=== PATIENT | female | born 1980 | race Caucasian/White ===

== ENCOUNTER 2018-07-26 10:55 | Day surgery (SDC) | payer OTHER ==
[~2018-07-26] VITALS: Ht 162.6 cm; Wt 105.2 kg
[~2018-07-26 10:55] MED LIST: ADVAIR 250-501 EACH INH; LORATADINE10 MG PO; PREDNISONE20 MG PO; PRENATAL 19 TA1 EAC1 PO; PROAIR HFA8.5 GM IH; PROMETRIUM100 MG; PROVENTIL HFA6.7 GM INH; VITAMIN D2000 UNIT PO
[2018-07-26] MEDS ORDERED: NORCO 7.5-3251 EACH PO (12:23)
--- NOTE | 2018-07-26 13:26 | NUR ---
07/26/18 1326 Elaine Perez SN 1301- PT IN PACU. LAYING IN SEMI FOWLERS POSOTION WITH EYES CLOSED. OPA IN PLACE. RESPS EVEN AND UNLABORED, 02 SAT HIGH 90S ON 9L VIA MASK. PT UNABLE TO REPORT PAIN NAUSEA AND DIZZINESS AT THIS TIME. LUCRECIA VICENTE AT BEDSIDE. PT REQUIRING JAW LIFT BY GERRI CARLOS TO ASSIST IN MAINTAINING ADEQUEATE VENTILATION. 1305- PT OPENED EYES TO VERBAL STIMLI BY GERRI CARLOS. FALLS BACK ASLEEP INSTANTLY. RESPS EVEN AND UNLABORED, 02 SAT HIGH 90S ON 8L VIA MASK. 1306- 02 TITRQATED DOWN TO 6L VIA MASK. TOLERATING WELL. RESPS EVEN AND UNLABORED, 02 SAT HIGH 90S. 1309- OPA REMOVED BY GERRI CARLOS. TOLERATING WELL. PT WAS ABLE TO ASISST IN REMOVAL BY GRABBING OPA AND NODDING THAT SHE WANTED IT OUT. RESPS EVEN AND UNLABORED, 02 REMOVED AT THIS TIME. 02 SAT REMAINS HIGH 90S ON RA. 1311- ICE APPLIED TO AFFECTED EXTREMITY AND PT GIVEN ANOTHER BLANKET DUE TO SHIVERING. TOLERATING WELL. PT RESTING WITH EYES PERIODICALYL CLOSED. ABLWE TO CONVERSATE WITH STAFF MEMBERS. RESPS REMAIN EVEN AND UNLABORED, 02 SAT HIGH 90S ON RA. PT REPORTINFG 2 OUT OF 10 PAIN THAT IS TOLERABLE FOR HER AT THIS TIME. 1321- PT REPORTING 4 OUT OF TEN PAIN THAT SHE STATES IS STILL TOLERABLE FOR HER AT THIS TIME. RESPS EVEN AND UNLABORED.
--- NOTE | 2018-07-26 14:09 | NUR ---
PT ARRIVES TO DS RM 10 FROM PACU AWAKE AND ALERT. PT RESP EVEN AND UNLABORED, SATS ABOVE 94% ON RA. PT DENIES NAUSEA AND RATES PAIN 4/10 AND TOLERABLE. PT MOM AT BEDSIDE. PT PROVIDED ICED WATER AND CRACKERS. PT STATES SHE "NEEDS TO PEE," WEIGHT BEARING ORDERS CHECKED AND PT AMBULATES TO BATHROOM WITHIN RM WITH RN ASSIST. PT DENIES PAIN OR DIZZINESS WITH AMBULATION. PT VOIDS 250 MLS LIGHT YELLOW URINE WITH NO PROBLEMS. PT BACK IN BED WITH SCD'S IN PLACE AND ICE ON LEFT KNEE. CALL LIGHT WITHIN REACH.
--- NOTE | 2018-07-26 15:38 | NUR ---
1515: DC CRITERIA MET, PT AGREEABLE TO DC HOME. DC INSTRUCTIONS GIVEN IN PRESENCE OF PT AND MOTHER, ALL QUESTIONS ADDRESSED. PT DRESSES SELF WITH HELP FROM MOTHER. PT DC VIA WC TO PERSONAL VEHICLE AT HOSPITAL ENTRANCE HOME.
--- NOTE | 2018-07-30 16:34 | OR ---
[facility] [address] [facility] [place] [address] Signed DATE OF OPERATION: 07/26/2018 SURGEON: Waldemar Swanson MD PREOPERATIVE DIAGNOSES: Medial meniscus tear, left knee. POSTOPERATIVE DIAGNOSIS: Medial meniscus tear, left knee. PROCEDURE PERFORMED: Left knee arthroscopy with partial medial meniscectomy. REAL ESTATE CLERK: None. ANESTHESIA: General. BLOOD LOSS: Minimal. TOURNIQUET TIME: Zero. BRIEF HISTORY: Shahrzad is a 38-year-old female with history of meniscus tear that I debrided about 8 months ago. She returned with recurrent symptoms. MRI showed a new meniscus tear anterior to the prior resection. Risks and benefits of operative treatment discussed with her. She elected to proceed. DESCRIPTION OF PROCEDURE: Once consent was obtained, she was taken to the operating room. After adequate anesthesia, she was placed on operating room table. All downside pressure points were well padded. The right leg was flexed, abducted, and externally rotated on a well-padded leg byrd. Left was placed in well-padded leg byrd. Portal sites were pre-injected using 0.25% Marcaine with epinephrine under an alcohol prep. The leg was then prepped and draped in a standard sterile fashion. Prior incisions were marked out and incised and the scope was introduced in the knee. Electronically Signed By: WALDEMAR SWANSON MD 07/30/18 1634 PATIENT NAME: SHAHRZAD PRIEST OPERATIVE REPORT DATE OF : 84 REPORT #: [id number] PHYSICIAN: WALDEMAR SWANSON MD PCP: NO PRIMARY CARE PHYSICIAN REPORT IS CONFIDENTIAL AND NOT TO BE RELEASED WITHOUT AUTHORIZATION [facility] [address] [place], [place] [address] Signed ARTHROSCOPIC FINDINGS: Extensive medial synovitis was noted. The lateral compartment was intact. ACL and PCL were intact. 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 There were small osteophytes in the lateral gutter. Medial compartment showed grade 4 chondromalacia to the mesial 1/3 of the tibial plateau. Grade 3 disease to the rest of the tibia and grade 2 to grade 3 disease on the femoral side. There was a new radial tear just anterior to the prior resection. Standard inferomedial portal was established. The scope was switched to the inferomedial portal to allow better working angle. The straight biter was then introduced and midportion was trimmed back to a stable rim. This was smoothed using a shaver and all debris was evacuated. The chondromalacia mesially was full-thickness and fairly extensive for her young age. All debris was evacuated. The scope was withdrawn. Portals were closed with 3-0 nylon and dressed with Adaptic, ABD, and ERVIN wrap. She tolerated the procedure well. All sponge, needle, and instrument counts were correct. Waldemar Swanson MD BA/RUYL /[id number] Copies: ~ Electronically Signed By: WALDEMAR SWANSON MD 07/30/18 1634 PATIENT NAME: ZAYDASHAHRZAD LEE OPERATIVE REPORT DATE OF : 84 REPORT #: [id number] PHYSICIAN: WALDEMAR SWANSON MD PCP: NO PRIMARY CARE PHYSICIAN REPORT IS CONFIDENTIAL AND NOT TO BE RELEASED WITHOUT AUTHORIZATION
== END 2018-07-26 15:30 | disposition home or self-care (01) ==
LOC: DS 10:55
PROVIDERS: Specialist
PROC: 0SBD4ZZ Excision of Left Knee Joint, Percutaneous Endoscopic Approach (ICD-10-PCS; principal; 2018-07-26 12:00)
DX: S83.242A Other tear of medial meniscus, current injury, left knee, initial encounter (principal); M22.42 Chondromalacia patellae, left knee; M25.762 Osteophyte, left knee; M65.862 Other synovitis and tenosynovitis, left lower leg; J45.909 Unspecified asthma, uncomplicated; E66.01 Morbid (severe) obesity due to excess calories; Z79.899 Other long term (current) drug therapy; Z68.39 Body mass index [BMI] 39.0-39.9, adult
CPT/HCPCS: 01400; J0330; J0690; J1100; J1170; J1885; J2250; J2405; J2704; J3010; J7120

== ENCOUNTER 2019-01-11 16:33 | Emergency (ER) | payer OTHER ==
[~2019-01-11] VITALS: Ht 162.6 cm; Wt 105.2 kg
[~2019-01-11 16:33] MED LIST changes: +NORCO 7.5-3251 EACH PO
[2019-01-11] MEDS ORDERED: DICYCLOMINE HCL10 MG PO (18:39)
[2019-01-11] MEDS ORDERED: PROMETHAZINE HC25 M1 PO (18:39)
== END 2019-01-11 18:49 | disposition home or self-care (01) ==
LOC: ED 16:33
DX: R10.33 Periumbilical pain (principal); R19.7 Diarrhea, unspecified; J45.909 Unspecified asthma, uncomplicated; Z79.899 Other long term (current) drug therapy
CPT/HCPCS: 80053; 81001; 83690; 83735; 84703; 85025; 96361; 96374; 96375; 99284-25; J2270; J2405; J7030

== ENCOUNTER 2019-08-23 15:45 | Emergency (ER) | payer OTHER ==
[~2019-08-23] VITALS: Ht 162.6 cm; Wt 90.7 kg
[~2019-08-23 15:45] MED LIST changes: +CITALOPRAM HBR20 MG PO; +DICYCLOMINE HCL10 MG PO; +NORCO 5-325 TA1 EACH PO; +PROMETHAZINE HC25 M1 PO; +VITAMIN B-650 MG PO
--- NOTE | 2019-08-23 20:44 | EKG ---
[facility] [address] [facility] [place], [place] [address] Signed Normal sinus rhythm Normal ECG No previous ECGs available Confirmed by MICKIE GAMING MD ([id number]) on 08/23/2019 8:44:11 PM Electronically Signed By: MICKIE GAMING MD 08/23/194 PATIENT NAME: KARIN PRIEST JONATHAN Electrocardiogram DATE OF : 84 PHYSICIAN: MICKIE GAMING MD REPORT #: [id number] REPORT IS CONFIDENTIAL AND NOT TO BE RELEASED WITHOUT AUTHORIZATION
== END 2019-08-23 19:33 | disposition home or self-care (01) ==
LOC: ED 15:45
DX: R07.9 Chest pain, unspecified (principal); J45.909 Unspecified asthma, uncomplicated; Z88.5 Allergy status to narcotic agent; Z79.899 Other long term (current) drug therapy
CPT/HCPCS: 71045; 80053; 83735; 84484; 85025; 93005; 93010; 99285-25

== ENCOUNTER 2020-03-17 01:35 | Emergency (ER) | payer OTHER ==
[~2020-03-17] VITALS: Ht 162.6 cm; Wt 103.0 kg
--- NOTE | 2020-03-17 20:40 | EKG ---
[facility] [address] [facility] [place], [place] [address] Signed Normal sinus rhythm Moderate voltage criteria for LVH, may be normal variant Borderline ECG When compared with ECG of 23-AUG-2019 16:13, No significant change was found Confirmed by VAN WYLIE DO ([id number]) on 03/17/2020 8:40:26 PM Electronically Signed By: VAN WYLIE DO 03/17/202039 PATIENT NAME: KARIN PRIEST JONATHAN Electrocardiogram DATE OF : 84 PHYSICIAN: VAN WYLIE DO REPORT #: [id number] REPORT IS CONFIDENTIAL AND NOT TO BE RELEASED WITHOUT AUTHORIZATION
== END 2020-03-17 03:41 | disposition home or self-care (01) ==
LOC: ED 01:35
DX: R07.89 Other chest pain (principal); Z20.822 Contact with and (suspected) exposure to COVID-19; J45.909 Unspecified asthma, uncomplicated; Z88.5 Allergy status to narcotic agent; Z79.899 Other long term (current) drug therapy
CPT/HCPCS: 71045; 80053; 83735; 84484; 84703; 85025; 93005; 93010; 96374; 99285-25; C9803; J2060; U0003

== ENCOUNTER 2020-09-20 05:40 | Day surgery (SDC) | payer OTHER ==
--- NOTE | 2020-09-07 16:26 | NUR ---
DOS: 7\19\21 STEPS: 2 STEPS INTO THE HOME HAS A WALK IN SHOWER PT WILL NEED TO OBTAIN THE FOLLOWING: FWW, TOILET RAISER, SHOWER CHAIR. GAVE PT THE [employer] DAVIDTE HANDOUT. PT LIVES AT HOME WITH HER AND TWO CHILDREN WHO ARE BOTH UNDER AGE 10. HER WILL GET HER TO FOLLOW-UP APPOINTMENTS AND PHYSICAL THERAPY.
[~2020-09-20] VITALS: Ht 162.6 cm; Wt 109.1 kg
[2020-09-20] MEDS ORDERED: MULTI-VITAMIN1 EACH PO (06:00)
[2020-09-20] MEDS ORDERED: OXYCODONE HCL5 MG PO (08:54)
[2020-09-20] MEDS ORDERED: XARELTO10 MG PO (08:54)
[2020-09-20] MEDS ORDERED: DICLOFENAC SODI75 MG PO (08:54)
[2020-09-20] MEDS ORDERED: SENNA LAX8.6 MG PO (08:55)
[2020-09-20] MEDS ORDERED: GABAPENTIN600 MG PO (08:55)
--- NOTE | 2020-09-20 09:00 | NUR ---
09/20/20 0900 Nadia Ocampo 0854- PT ARRIVES TO PACU EASILY AROUSABLE TO VOICE. PT REPORTS NO PAIN OR NAUSEA. PT FALLS TO SLEEP WHEN NOT BEING TALKED TO. RESP EVEN AND UNLABORED. OXYGEN SAT HIGH 90'S TO 100% ON RA.
--- NOTE | 2020-09-20 10:13 | NUR ---
0951: PT RETURNS TO UNIT VIA STRETCHER. AWAKE AND ALERT. ANSWERS QUESTIONS APPROPRIATELY. VSS, RESP EVEN AND UNLABORED. DENIES NAUSEA AND REPORTS MILD PAIN AT THIS TIME. TO EAT CRACKERS AND SIP ON WATER PRIOR TO PAIN RX ADMINISTRATION. SMALL AMOUNT OF DRAINAGE NOTED ON DRESSING. CMS WNL. CRYO CUFF, SCDS AND COMPRESSION HOSE IN PLACE. PT COMFORTABLE WITHOUT NEEDS. NOTIFIED OF PTS ARRIVAL TO UNIT. CALL LIGHT WITHIN REACH 1010: PT TANNA PO INTAKE WELL. REPORTS INCREASED PAIN /10. PAIN RX ADMINISTERED ORDERED AND SNACK PROVIDED AT REQUEST. NO FURTHER NEEDS VOICED
--- NOTE | 2020-09-20 11:00 | NUR ---
1100: PT AWAKE AND ALERT IN BED WATCHING TV. DENIES PAIN AND NAUSEA AT THIS TIME. TANNA PO INTAKE WELL. REG LUNCH TRAY ORDERED. VSS, RESP EVEN AND UNLABORED. NO CHANGE TO DRESSING, CMS WNL. CRYO CUFF, COMPRESSION SOCKS AND SCDS REMAIN IN PLACE. ICE WATER REPLENISHED. NO NEEDS VOICED. CALL LIGHT WITHIN REACH
--- NOTE | 2020-09-20 11:00 | NUR ---
director of revenue took pt vitals
--- NOTE | 2020-09-20 11:41 | NUR ---
dowel maker took pt lunch in to her. No other needs at this time. call light within reach .
--- NOTE | 2020-09-20 11:56 | NUR ---
vitals taken, pt. eating lunch no other needs at this time
--- NOTE | 2020-09-20 12:03 | OR ---
[facility] [address] [place], [place] [address] Signed DATE OF OPERATION: 09/20/2020 SURGEON: Waldemar Swanson MD PREOPERATIVE DIAGNOSIS: Severe degenerative joint disease of left knee. POSTOPERATIVE DIAGNOSIS: Severe degenerative joint disease of left knee. PROCEDURE PERFORMED: Left total knee arthroplasty with Per. PROPERTY UNDERWRITER: None. ANESTHESIA: Spinal. BLOOD LOSS: 225 mL. IMPLANTS: Davenport Triathlon size 3 femur, 2 tibia, 9 mm polyethylene and a 29 mm patella. BRIEF HISTORY: Shahrzad is a 40-year-old female with progressive worsening of osteoarthritis. Despite nonoperative obtained. The risks and benefits of operative treatment were discussed with her and she elected to proceed. DESCRIPTION OF PROCEDURE: Once consent was obtained, she was taken to the operating room. After adequate anesthesia, she was placed on the operating room table, all downside pressure points were well padded. The left leg was placed on a hip bump. No tourniquet was placed. The leg was prepped and draped in a standard sterile fashion. Standard anterior approach through a straight incision was taken through the skin and subcutaneous tissue. The mid vastus approach was undertaken. The bleeders were cauterized as we went. The MCL was elevated with a sleeve around the posteromedial corner. The infrapatellar fat pad was excised. Anterior horns of menisci were transected as was the ACL. The PCL was intact. The for the Per system were placed in the medial femoral condyle Electronically Signed By: WALDEMAR SWANSON MD 09/20/20 1203 PATIENT NAME: SHAHRZAD PRIEST OPERATIVE REPORT DATE OF : 84 REPORT #: [id number] PHYSICIAN: WALDEMAR SWANSON MD PCP: NO PRIMARY CARE PHYSICIAN REPORT IS CONFIDENTIAL AND NOT TO BE RELEASED WITHOUT AUTHORIZATION [facility] [address] [place], [place] [address] Signed and proximal tibia. The computer ray was placed intra-incisionally in the medial femoral condyle. The tibial tray was placed one handsbreadth below the tibial tuberosity percutaneously. The leg was then registered with computer as were the fine anatomic points. The varus valgus testing showed minimal ligamentous laxity. We did change the rotation by 1 degree. The robot was then brought in and the four straight cuts were taken with care taken to protect the patellar tendon and MCL. The 2 angle cuts were made and all bony surfaces removed. Any remaining osteophytes removed. Once this was accomplished, the posterior osteophytes removed off the femur and the trials were placed. The knee went from 0 to about 130 degrees, which was thigh heel impingement. The patella was cut sized and drilled for a 29 asymmetric patella. The distal femoral drill holes were made and the tibia was finished using the keel punch and drilled. The bone was excellent in condition and we elected to go a non-cemented prosthesis. The prosthesis was obtained and the tibia was impacted in position first followed by the polyethylene. The femur was impacted into position. The knee was extended and nicely loaded. The patella was clamped into position and the periarticular soft tissues were injected with 100 mL ropivacaine and Toradol mixture. The knee was pulse lavaged with 3 L total normal saline. In the midst of this, we did do a soak with Aricept and evacuated that with further irrigation. The On-Q pain pump was placed percutaneously into the adductor canal from the suprapatellar pouch. The arthrotomy was then closed using #2 Stratafix, subcutaneous tissue with #0 Stratafix, and skin with 3-0 Stratafix. The wounds were dressed with Steri-Strips and Acticoat dressings. She was awakened and taken to the recovery room in satisfactory condition. All sponge, needle, and instrument counts were correct. Waldemar Swanson MD /MODL /[id number] Copies: ~ Electronically Signed By: WALDEMAR SWANSON MD 09/20/20 1203 PATIENT NAME: SHAHRZAD PRIEST OPERATIVE REPORT DATE OF : 84 REPORT #: [id number] PHYSICIAN: WALDEMAR SWANSON MD PCP: NO PRIMARY CARE PHYSICIAN REPORT IS CONFIDENTIAL AND NOT TO BE RELEASED WITHOUT AUTHORIZATION
--- NOTE | 2020-09-20 12:10 | NUR ---
pt ate 95% of her lunch and requested more water. no other needs at this time.
--- NOTE | 2020-09-20 12:56 | NUR ---
1150: PT COMPLETES REG LUNCH TRAY. CONTS TO DENY PAIN AND NAUSEA. VSS, RESP EVEN AND UNLABORED. NO CHANGE TO DRESSING, CMS WNL. SCDS, COMPRESSION SOCKS AND CRYO CUFF REMAIN IN PLACE. NO NEEDS VOICED, CALL LIGHT WITHIN REACH
--- NOTE | 2020-09-20 13:00 | NUR ---
vitals taken. Physical Therapy just arrived and is in with pt. no other needs at this time.
--- NOTE | 2020-09-20 13:02 | NUR ---
1300: PT CONTS TO REMAIN ALERT AND AWAKE WATCHING TV. VSS, RESP EVEN AND UNLABORED. DENIES PAIN AND NAUSEA. NO CHANGE TO DRESSING, CMS WNL. PHYSICAL THERAPIST ARRIVES AT THE BEDSIDE FOR SESSION. NO NEEDS VOICED, CALL LIGHT WITHIN REACH
--- NOTE | 2020-09-20 13:49 | NUR ---
1350: PT RETURNS TO UNIT FROM PHYSICAL THERAPY SESSION. CLEARED BY THERAPIST FOR D/C. PT WITH NAUSEA AFTER ACTIVITY. TC PLACED TO LUCRECIA HEREDIA AND ANTIEMETIC ORDER RECEIVED. AWAITING VERIFICATION FROM PHARMACY
--- NOTE | 2020-09-20 14:07 | NUR ---
1400: ANTIEMETIC RX ADMINISTERED ORDERED. PT DENIES PAIN AND REPORTS COMFORTABLE IN STRETCHER AT THIS TIME. VSS, RESP EVEN AND UNLABORED. NO CHANGE TO DRESSING, CMS WNL. SCDS, CRYO CUFF AND COMPRESSION SOCKS IN PLACE. LIGHTS DIMMED FOR COMFORT. CALL LIGHT WITHIN REACH
--- NOTE | 2020-09-20 15:09 | NUR ---
1430: PT DENIES NAUSEA AND INQUIRES ABOUT D/C. D/C DISCUSSED AND PT FEELS SHE IS READY. D/C ORDER RECEIVED FROM MD MARISABEL. SECOND DOSE OF ANCEF ADMINISTERED ORDERED AND SL REMOVED WITH CATH TIP INTACT. PRESSURE APPLIED TO SITE, WNL. 1445: D/C INSTRUCTIONS PROVIDED AND DISCUSSED ORDERED. PT VOICES UNDERSTANDING AND DENIES QUESTIONS AND CONCERNS AT THIS TIME. DRESSES WITH MINIMAL ASSISTANCE. CONTS TO DENY NAUSEA. VSS, RESP EVEN AND UNLABORED. DRESSING UNCHANGED. CRYO CUFF INSTRUCTION PROVIDED 1500: WHEELED OFF OF UNIT BY THIS RN. TRANSFERS INTO VEHICLE INDEPENDENTLY. RESP EVEN AND UNLABORED, NO PHYSICAL S/S OF DISTRESS AT THIS TIME
== END 2020-09-20 15:00 | disposition home or self-care (01) ==
LOC: DS 05:40
PROVIDERS: ATTEND Specialist
PROC: 8E0YXBZ Computer Assisted Procedure of Lower Extremity (ICD-10-PCS; 2020-09-20)
PROC: 0SRD0JA Replacement of Left Knee Joint with Synthetic Substitute, Uncemented, Open Approach (ICD-10-PCS; principal; 2020-09-20 06:45)
DX: M17.12 Unilateral primary osteoarthritis, left knee (principal); G89.18 Other acute postprocedural pain; J45.909 Unspecified asthma, uncomplicated; Z88.5 Allergy status to narcotic agent
CPT/HCPCS: 01402; 64447; 64450; 76942; 97110; 97161; C1713; C1776; J0690; J1100; J1790; J1885; J2001; J2250; J2405; J2704; J2795; J3010; J7121

== ENCOUNTER 2021-09-22 06:10 | Day surgery (SDC) | payer OTHER ==
[~2021-09-22] VITALS: Ht 162.6 cm; Wt 116.0 kg
[~2021-09-22 06:10] MED LIST changes: +CLARITIN10 MG PO; +DICLOFENAC SODI75 MG PO; +GABAPENTIN600 MG PO; +MULTI-VITAMIN1 EACH PO; +OXYCODONE HCL5 MG PO; +PROTONIX40 M1 PO; +QVAR REDIHALE10.6 GM IH; +SENNA LAX8.6 MG PO; +SINGULAIR10 MG PO; +XARELTO10 MG PO
--- NOTE | 2021-09-22 08:05 | NUR ---
09/22/21 0805 Kathy Palmer 0752 PT ARRIVED TO PACU ON 3L VIA NC, VSS. PT WAKES EASILY AND IS REORIENTED TO PACU. PT EASILY FALLS BACK TO SLEEP.
--- NOTE | 2021-09-22 08:25 | NUR ---
PT ALERT, ORIENTED AND NEEDING SOME ANSWERS FROM EGD TODAY. HER SISTER WILL BE HERE AT [place]. ALL QUESTIONS ASKED ANSWERED. PT REQUESTED PRAYER, WILL FOLLOW
--- NOTE | 2021-09-22 09:27 | OR ---
[facility] [address] [place], [place] [address] Signed DATE OF OPERATION: 09/22/2021 SURGEON: Brenda Bowles MD PREOPERATIVE DIAGNOSES: 1. Heartburn. 2. Acid reflux. 3. Proximal esophageal dysphagia. POSTOPERATIVE DIAGNOSES: 1. Small hiatal hernia. 2. Mild diffuse gastritis. PROCEDURES: EGD with CLOtest and biopsies of the antrum, GE junction and midesophagus. ESTIMATED BLOOD LOSS: None. INDICATIONS: Karin is a 41-year-old obese female, asked to see me for an upper endoscopy. She has been describing acid reflux and heartburn in the last five years. She has proximal esophageal dysphagia particularly to solid foods over the last five years. She thinks it is worse in the last couple of months. She also was telling us about her two children, one was born premature. She has been under a lot of stress. She has been to her primary care provider. She was started on Protonix. She seems to feel that it is helping. In the meantime, she was asked to see me for an upper endoscopy. We did send her for a barium swallow. She did quite well. She does have a tiny hiatal hernia with significant acid reflux. There is no stricture, there are no masses noted and there are no motility issues. In the office, I had given her a pamphlet on upper endoscopy. She understands the nature of that test. There is risk including, but not limited to gas bloating, crampy abdominal pain, bleeding, perforation requiring surgery, and missed diagnosis. She had expressed understanding and wished to proceed. PROCEDURE NOTE: Karin was taken into our endoscopy suite and placed in a supine semi-recumbent position. The posterior oropharynx was anesthetized with lidocaine spray. A bite block was utilized for the case. We did have her take the citalopram before she came. Nevertheless, she used 9 mg of Versed and 100 mcg of fentanyl to cover the case. The adult gastroscope had been introduced and advanced under direct visualization of the Electronically Signed By: BRENDA BOWLES MD 09/22/21 0927 PATIENT NAME: KARIN PRIEST OPERATIVE REPORT DATE OF : 84 REPORT #: [id number] PHYSICIAN: BREDNA BOWLES MD PCP: [facility] REPORT IS CONFIDENTIAL AND NOT TO BE RELEASED WITHOUT AUTHORIZATION [facility] [address] [place], [place] [address] Signed camera out into the third portion of the duodenum without difficulty. The duodenum and pyloric channel were unremarkable. The stomach showed mild diffuse erythematous changes throughout. There were no ulcerations. We took a biopsy from the antrum for CLOtest as well as pathologic review. Upon retroflexion of the scope, she does have just a tiny hiatal hernia. It actually seemed better from above. The scope was withdrawn up through the area of the GE junction, which was compliant without stricture. She has minimal disruption to the Z-line. We took a biopsy along the edge of the Z-line. There was no De La Torre's mucosa. Really no changes in the mid or upper esophagus that we could see. We went ahead and took a biopsy of the midesophagus due to the dysphagia. After this, the gas was suctioned out and the gastroscope removed. Karin tolerated the procedure quite well. RECOMMENDATIONS: I will see Karin back in my office in 7 to 14 days to review her results. She should stay on her Protonix. Brenda Bowles MD ALB/MODL /[id number] cc: [facility] Brenda Bowles MD Copies: BRENDA BOWLES MD ~ Electronically Signed By: BRENDA BOWLES MD 09/22/21 0927 PATIENT NAME: KARIN PRIEST OPERATIVE REPORT DATE OF : 84 REPORT #: [id number] PHYSICIAN: BRENDA BOWLES MD PCP: [facility] REPORT IS CONFIDENTIAL AND NOT TO BE RELEASED WITHOUT AUTHORIZATION
--- NOTE | 2021-09-27 10:41 | PATH ---
[facility] [address] [facility] [place] [address] Signed SPECIMEN(S): A ANTRUM BIOPSY SPECIMEN(S): B GE JUNCTION BIOPSY SPECIMEN(S): C MID ESOPHAGEAL BIOPSY SPECIMEN SOURCE: A. ANTRUM BIOPSY B. GE JUNCTION BIOPSY C. MID ESOPHAGEAL BIOPSY CLINICAL HISTORY: EGD. Dysphagia and reflux. FINAL PATHOLOGIC DIAGNOSIS: A. Stomach, antrum, biopsy: - Antral mucosa with mild chronic, inactive gastritis. - Negative for Helicobacter organisms on HE stain. - Negative for dysplasia or malignancy. B. Gastroesophageal junction, biopsy: - Squamocolumnar junctional mucosa with changes consistent with reflux esophagitis. - Negative for intestinal metaplasia, dysplasia, or malignancy. C. Esophagus, mid, biopsy: - Squamous mucosa with mild reactive changes. - Negative for increased intraepithelial eosinophils. - Negative for intestinal metaplasia, dysplasia, or malignancy. COMMENT: Part B was reviewed in consultation with another member of our pathology staff (EVANGELIST). NAL:cml:C2NR MICROSCOPIC EXAMINATION: Histologic sections of all submitted blocks are examined by light microscopy. These findings, together with the gross examination, support the pathologic diagnosis. Regarding specimen B: Sections demonstrate squamocolumnar junctional mucosa with chronic inflammation and reactive epithelial changes. The squamous mucosa demonstrates spongiosis and basal cell hyperplasia. Focally within the glandular mucosa is pseudo goblet cell metaplasia. No intestinal metaplasia is identified. NAL:cml PATIENT NAME: KARIN PRIEST JONATHAN PATHOLOGY DATE OF : 84 REPORT #: [id number] PHYSICIAN: ELENITA PATHOLOGY PCP: [facility] REPORT IS CONFIDENTIAL AND NOT TO BE RELEASED WITHOUT AUTHORIZATION [facility] [address] [place], [place] [address] Signed GROSS DESCRIPTION: Three specimens are received in three containers, labeled "HC." A. The specimen, labeled "HC, antrum biopsy," is received in formalin and consists of one ibarra soft tissue fragment that measures 0.2 cm in greatest dimension. The specimen is entirely submitted in cassette (A1). B. The specimen, labeled "HC, GE junction biopsies," is received in formalin and consists of one ibarra soft tissue fragment that measures 0.2 cm in greatest dimension. The specimen is entirely submitted in cassette (B1). C. The specimen, labeled "HC, mid esophagus biopsy," is received in formalin and consists of one ibarra soft tissue fragment that measures 0.3 cm in greatest dimension. The specimen is entirely submitted in cassette (C1). JS (under the direct supervision of a pathologist) The Gross Description was prepared using a voice recognition system. The report was reviewed for accuracy; however, sound-alike word errors, addition and/or deletions may occur. If there is any question about this report, please contact Client Services. PERFORMING LABORATORY: The technical component was performed by [facility], [address] [place] [id number] (CLIA# [id number]). [facility] [address] [address] (CLIA# [id number]). Diagnostician: Dimple Boyd MD Pathologist Electronically Signed 09/27/2021 Copies: ~ PATIENT NAME: KARIN PRIEST PATHOLOGY DATE OF : 84 REPORT #: [id number] PHYSICIAN: ELENITA PATHOLOGY PCP: [facility] VIZCAINO REPORT IS CONFIDENTIAL AND NOT TO BE RELEASED WITHOUT AUTHORIZATION
== END 2021-09-22 08:38 | disposition home or self-care (01) ==
LOC: OPS 06:10 → DS 06:10 → OPS 07:30 → DS 07:30 → OPS 08:38
PROVIDERS: ATTEND Colon & Rectal Surgery
PROC: 0DB28ZX Excision of Middle Esophagus, Via Natural or Artificial Opening Endoscopic, Diagnostic (ICD-10-PCS; 2021-09-22)
PROC: 0DB48ZX Excision of Esophagogastric Junction, Via Natural or Artificial Opening Endoscopic, Diagnostic (ICD-10-PCS; principal; 2021-09-22 07:30)
DX: K29.50 Unspecified chronic gastritis without bleeding (principal); K21.9 Gastro-esophageal reflux disease without esophagitis; K44.9 Diaphragmatic hernia without obstruction or gangrene; J45.40 Moderate persistent asthma, uncomplicated; E66.9 Obesity, unspecified; Z68.41 Body mass index [BMI] 40.0-44.9, adult; Z20.822 Contact with and (suspected) exposure to COVID-19
CPT/HCPCS: 36415; 84703; 87077; 87502; 99153; G0500; J0690; J2250; J3010; J7121; U0003

== ENCOUNTER 2022-02-12 10:34 | Emergency (ER) | payer OTHER ==
[~2022-02-12] VITALS: Ht 162.6 cm; Wt 116.2 kg
[2022-02-12] MEDS ORDERED: LORATADINE10 MG PO (11:43)
[2022-02-12] MEDS ORDERED: BENZONATATE100 MG PO (11:44)
[2022-02-12] MEDS ORDERED: DOXYCYCLINE HY100 MG PO (16:07)
[2022-02-12] MEDS ORDERED: PREDNISONE20 MG PO (16:07)
[2022-02-12] MEDS ORDERED: VENTOLIN HFA18 GM INH (16:09)
== END 2022-02-12 16:22 | disposition home or self-care (01) ==
LOC: ED 10:34
DX: J45.901 Unspecified asthma with (acute) exacerbation (principal); J11.1 Influenza due to unidentified influenza virus with other respiratory manifestations; Z88.5 Allergy status to narcotic agent; Z79.899 Other long term (current) drug therapy
CPT/HCPCS: 71046; 94640; 99285-25; A9270; J7512

== ENCOUNTER 2022-02-27 18:45 | Emergency (ER) | payer OTHER ==
[~2022-02-27] VITALS: Ht 162.6 cm; Wt 119.9 kg
[~2022-02-27 18:45] MED LIST changes: +BENZONATATE100 MG PO; +DOXYCYCLINE HY100 MG PO; +VENTOLIN HFA18 GM INH
--- OUTSIDE RECORDS SUMMARY | 2022-02-27 18:52 | XMS ---
PreManage Notification: KARIN PRIEST Security Sample Paster Events No recent Security Events currently on file CRITERIA MET - [facility] - 2 Visits in 30 Days CARE PROVIDERS There are no care providers on record at this time. Frida has no Care Guidelines for this patient. Kerri [facility] (12 MO.) [facility] NOTE: Visits indicate total known visits. ED/C VISIT TRACKING (12 MO.) [facility]2022 18[facility] COMPLAINT: - SOB AND RASH 02/12/2022 10:[address] [facility] [place] TYPE: Emergency COMPLAINT: - DIFFICULTY BREATHING, LOSS OF VOICE, EYE PAIN DIAGNOSES: - Influenza due to unidentified influenza virus with other respiratory manifestations - Shortness of breath - Allergy status to narcotic agent - Other continuous churn buttermaker (current) drug therapy - Unspecified asthma with (acute) exacerbation INPATIENT VISIT TRACKING (12 MO.) No inpatient visits to display in this time frame [email or web address]
== END 2022-02-27 20:38 | disposition home or self-care (01) ==
LOC: ED 18:45
DX: J45.909 Unspecified asthma, uncomplicated (principal); Z88.5 Allergy status to narcotic agent; Z79.899 Other long term (current) drug therapy
CPT/HCPCS: 71046; 99284-25

== ENCOUNTER 2023-09-21 02:05 | Day surgery (SDC) | payer OTHER ==
[~2023-09-21 02:05] MED LIST changes: -PROAIR HFA8.5 GM IH
[2023-09-21] MEDS ORDERED: HEParin SOD (PORCINE) 5,000 UNIT/0.5 ML SYR SUB-Q SCH (07:00)
[2023-09-21] MEDS ORDERED: CEFAZOLIN SODIUM 2 GM/20 ML SYR IV SCH (07:00)
[2023-09-21] MEDS ORDERED: LACTATED RINGER'S 1,000 ML IV SCH (09:00)
[2023-09-21] MEDS ORDERED: HYDROCODONE/APAP 10/325 1 TAB PO PRN (09:00)
[2023-09-21] MEDS ORDERED: HYDROmorphone HCL 1 MG/ML SYR IV PRN (09:00)
[2023-09-21] MEDS ORDERED: ondansetron HCL 4 MG/2 ML VIAL IV PRN (09:00)
[2023-09-21] MEDS ORDERED: PROCHLORPERAZINE EDISYLATE 10 MG/2 ML VIAL IV PRN (09:00)
[2023-09-21] MEDS ORDERED: HYDROmorphone HCL 1 MG/ML SYR ONE (12:42)
[2023-09-21] MEDS ORDERED: HYDROCODONE/APAP 10/325 1 TAB ONE (12:43)
--- NOTE | 2023-09-21 13:23 | NUR ---
VISITED DURING SPIRITUAL CARE ROUNDS. PT EXPRESSED DESIRE FOR NAP. SHORT VISIT. MEDICAL APPOINTMENT CLERK PROVIDED SUPPORTIVE PRESENCE, HOSPITALITY, PRAYER.
[2023-09-21 13:29] LABS: BASOPHILS 0.5 % (0-2); EOSINOPHILS 3.1 % (0-6); HEMATOCRIT 43.8 % (35.0-50.0); HEMOGLOBIN 14.5 g/dL (12.0-18.0); LYMPHOCYTES 26.1 % (24-44); MCH 28.4 (27-36); MCHC 33.2 g/dl (30-36); MCV 85.7 fl (81-99); MONOCYTES 7.9 % (0-12); NEUTROPHILS 62.4 % (39-80); PLATELET COUNT 340 K/uL (140-440); RDW 13.7 (10.5-15.0)
[2023-09-21 13:30] LABS: ALBUMIN 3.6 g/dL (3.4-5.0); ALBUMIN/GLOBULIN RATIO 0.92 (1.1-2.4); BUN/CREATININE RATIO 12.96 (6.0-28.6); CREATININE, SERUM 1.08 mg/dL (0.55-1.02); PROTEIN, TOTAL 7.5 g/dL (6.4-8.2)
[2023-09-21 13:31] LABS: BILIRUBIN, TOTAL 0.2 ng/dL (0.2-1.0)
--- NOTE | 2023-09-21 13:34 | NUR ---
PT DENIES PAIN AT REST AT THIS TIME, DENIES NAUSEA. TOLERATING DIET WELL, ADVANCED TO REGULAR DIET. DRESSINGS TO ABDOMEN REMAIN CLEAN DRY AND INTACT. BT TONES HYPOACTIVE X4 QUADRANTS. ABDOMEN MILDLEY DISTENTED. SANDWICH BOX PROVIDED. PT STATES, "I FEEL MUCH BETTER."
--- NOTE | 2023-09-21 13:52 | NUR ---
MED REC COMPLETE.
[2023-09-21 14:00] VITALS: BP 159/68
--- NOTE | 2023-09-21 14:49 | NUR ---
PT EATS 100% OF REGULAR MEAL AND AN ORANGE JUICE, TOLERATES THIS WELL. DENIES NAUSEA. REPORT PAIN TOLERABLE, 0/10 WHEN SHE IS NOT MOVING, REPORTS PAIN 7/10 IN ABDOMEN WITH MOVEMENT. BT HYPOACTIVE IN RLQ AND RUQ, BT ACTIVE IN THE LLQ AND LUQ. NO CHANGES TO DRESSINGS OVER ABDOMEN INCISIONS. PT DENIES FLATUS. PT VOIDS 400 MLS OF URINE. AMBULATES OCCASIONALLY IN ROOM. FRESH ICE PACK PROVIDED TO ABDOMEN. IV TO SL NOW THAT PT IS TOLERATING PO INTAKE WELL.
--- NOTE | 2023-09-21 15:50 | NUR ---
UR CLINICAL REVIEW: [facility] [place], GALL BLADDER INFLAMMATION [facility] OBS 09/21/23 @ 0206 ORDER MATCHES STATUS AUTH PENDING, CLINICALS FAXED TO [facility]. PLAN TO DC TO HOME WHEN STABLE. 09/22/23
--- NOTE | 2023-09-21 16:50 | NUR ---
PTs SISTER CALLING ASKING FOR UPDATE. UPDATE PROVIDED.
--- NOTE | 2023-09-21 17:28 | NUR ---
PT REPORTS, "I FEEL MUCH BETTER." REPORTS PAIN 5/10 IN ABDOMEN, PAIN MEDICATION RECEIVED, SEE EMAR. PT EATS MEAL, CONTINUES TO TOLERATE THIS WELL, DENIES NAUSEA. PT VOIDS 400 MLS CLEAR YELLOW URINE.
[2023-09-21 17:51] VITALS: BP 147/67
[2023-09-21] MEDS ORDERED: XULANE PATCH1 EACH TD (17:52)
[2023-09-21] MEDS ORDERED: PANTOPRAZOLE SO40 MG PO (17:53)
--- NOTE | 2023-09-21 18:10 | NUR ---
THIS RN IN TO GO OVER DC PAPERWORK. VERBAL AND WRITTEN INSTRUCTIONS PROVIDED. PTs RX PROVIDED AND PT EDUCATED ON MEDICATIONS. QUESTIONS ANSWERED. PT VERBALIZES UNDERSTANDING. BELONGINGS RETURNED. IV IN LEFT AC REMOVED WNL. NO REDNESS OR EDEMA NOTED TO SITE. PT DENIES ANY OTHER NEEDS OR CONCERNS. PT REPORITNG SISTER IS AT FRONT TO TAKE PT HOME. ADILIA WILLINGHAM WHEELS PT DOWN FOR RIDE.
[2023-09-21] MEDS ORDERED: HYDROCODONE BIT/ACETAMINOPHEN 5/325 MG 1 TAB HOME.PACK PO ONE (20:30)
--- NOTE | 2023-09-24 16:15 | OR ---
[facility] [address] [place], [place] [address] Signed DATE OF OPERATION: 09/21/2023 SURGEON: Brenda Bowles MD PREOPERATIVE DIAGNOSIS: Acute cholecystitis and cholelithiasis. POSTOPERATIVE DIAGNOSIS: Acute cholecystitis and cholelithiasis. PROCEDURE: Laparoscopic cholecystectomy with intraoperative cholangiogram. ESTIMATED BLOOD LOSS: Minimal. FINDINGS: Shahrzad had an unremarkable intraoperative cholangiogram. Her gallbladder was distended and taking on fluid. It had a dull babita color. We did need an extra nurse to scrub in for the fan retractor so we could dissect out the triangle of Calot. INDICATIONS: Shahrzad is a 43-year-old obese female with a body mass index of 44. She had actually come in the office for her symptomatic cholelithiasis. She has been having right upper quadrant abdominal pain radiating through to her back. She had been in the emergency room for evaluation. CT scan showed her gallstones. Her labs were unremarkable. She has continued to have some pain in her right shoulder area. We had her scheduled for elective surgery this morning. She developed another gallstone attack last night and ended up in the emergency room. We simply admitted her overnight for IV fluids and pain control and kept her on her schedule for this morning. In the office, I had given her a booklet on the gallbladder. We discussed the location and function of the gallbladder. We discussed laparoscopic versus open cholecystectomy. There is risk to surgery including, but not limited to bleeding, infection, scarring, change in contour of the skin, damage to bowel, damage to main bile duct, incisional hernias and other unforeseen comorbidities. We also reviewed the expected intraop and postop course. She had expressed understanding and wished to proceed. DESCRIPTION OF PROCEDURE: Shahrzad was taken into the operating room and placed in the supine position under general endotracheal tube anesthesia. She was given preoperative antibiotics along with Electronically Signed By: BRENDA BOWLES MD 09/21/23 1726 Electronically Signed By: BRENDA BOWLES MD 09/25/23 0808 PATIENT NAME: SHAHRZAD PRIEST OPERATIVE REPORT DATE OF : 84 REPORT #: [id number] PHYSICIAN: BRENDA BOWLES MD PCP: BREANNA FUNG REPORT IS CONFIDENTIAL AND NOT TO BE RELEASED WITHOUT AUTHORIZATION [facility] [address] [place], [place] [address] Signed subcutaneous heparin. SCDs were utilized. She was prepped and draped in the usual sterile fashion. We utilized our usual trocar sites and placed our trocars under direct visualization without difficulty. The gallbladder was easily visualized and found to be as above. We took pictures throughout for photodocumentation. We had to drain the gallbladder in order to grasp the gallbladder to elevate in the right upper quadrant. We still do not have good view of the triangle of Calot. We therefore added a fan retractor through the mid epigastric midline and had a 2nd nurse scrub in. That gave us nice access to her triangle of Calot. It was very carefully dissected out and we put a couple clips across the cystic artery and it had been divided. We placed our intraoperative cholangiocatheter into the cystic duct. The intraoperative cholangiocatheter was found to be unremarkable. Contrast flowed nicely without any filling defects. The cystic duct stump was secured with three sequential clips on the cystic duct stump. Each clip went completely across the cystic duct stump. The gallbladder was slowly and carefully removed the gallbladder fossa with the help of the cautery and placed into an EndoCatch bag. The right upper quadrant had been irrigated and suctioned out until clear. We used our laparoscopic suturing device with 0-Vicryl suture to pass 0-Vicryl suture on either side of the fascia of the subxiphoid and mid epigastric trocar sites. These were tied down to close the fascia primarily. After this, all the gas was allowed to escape and all the trocars removed along with the gallbladder. The gallbladder was passed off the table to our circulating nurse for photodocumentation. She had two yellow cholesterol stones, probably 8 to 10 mm in diameter. She also had severe cholesterolosis. We then closed the fascia of the supraumbilical trocar site with interrupted [id number] and simple 0-Vicryl sutures. Local anesthetic was injected into all trocar sites. Skin and dermis of each trocar site were closed with interrupted 3-0 subcuticular Monocryl sutures. Dry gauze and tape was applied to all incisions. Shahrzad was awakened from anesthesia, extubated in the OR, and taken to recovery room in stable condition. Brenda Bowles MD ALB/MODL /[id number] cc: Brenda Bowles MD [facility] Electronically Signed By: BRENDA BOWLES MD 09/21/23 1726 Electronically Signed By: BRENDA BOWLES MD 09/25/23 0808 PATIENT NAME: SHAHRZAD PRIEST OPERATIVE REPORT DATE OF : 84 REPORT #: [id number] PHYSICIAN: BRENDA BOWLES MD PCP: BREANNA FUNG REPORT IS CONFIDENTIAL AND NOT TO BE RELEASED WITHOUT AUTHORIZATION [address] [address] Signed Copies: BRENDA BOWLES MD ~ Electronically Signed By: BRENDA BOWLES MD 09/21/23 1726 Electronically Signed By: BRENDA BOWLES MD 09/25/23 0808 PATIENT NAME: SHAHRZAD PRIEST OPERATIVE REPORT DATE OF : 84 REPORT #: [id number] PHYSICIAN: BRENDA BOWLES MD PCP: BREANNA FUNG REPORT IS CONFIDENTIAL AND NOT TO BE RELEASED WITHOUT AUTHORIZATION
--- NOTE | 2023-09-28 09:19 | PATH ---
[facility] [address] [place], [place] [address] Signed SPECIMEN(S): A GALLBLADDER WITH STONES SPECIMEN SOURCE: A. GALLBLADDER WITH STONES CLINICAL HISTORY: Symptomatic cholelithiasis FINAL PATHOLOGIC DIAGNOSIS: Gallbladder, cholecystectomy: - Morphologic features of cholesterolosis with cholelithiasis. NA MICROSCOPIC EXAMINATION: Histologic sections of all submitted blocks are examined by light microscopy. These findings, together with the gross examination, support the pathologic diagnosis. GROSS DESCRIPTION: The specimen, labeled and designated "[place], gallbladder with stones," is received in formalin and consists of Specimen: Previously opened gallbladder. Dimensions: 7.0 x 3.5 x 2.5 cm. Serosa: [place]-landry to violaceous and smooth. Cystic Duct: Unobstructed, margin inked black and shaved. Calculi: Two yellow-green bosselated calculi (1.0 x 1.0 x 1.0 cm, and 1.4 x 1.1 x 0.8 cm). Mucosa: [place]ry-brown and velvety with yellow flecking. Wall thickness: 0.2-0.4 cm. Lymph node: No pericystic lymph nodes are grossly identified. Additional: None. Outdoor Education Teacher sections are submitted in (A1). VB (under the direct supervision of a pathologist) The Gross Description was prepared using a voice recognition system. The report was reviewed for accuracy; however, sound-alike word errors, addition and/or deletions may occur. If there is any question about this report, please contact Client Services. ADDITIONAL NOTES: Immunohistochemical and/or in situ hybridization studies if performed in this case included appropriate positive controls that reacted as expected. This PATIENT NAME: KARIN PRIEST PATHOLOGY DATE OF : 84 REPORT #: [id number] PHYSICIAN: ELENITA BOCANEGRA PCP: BREANNA FUNG REPORT IS CONFIDENTIAL AND NOT TO BE RELEASED WITHOUT AUTHORIZATION [facility] [address] [place], [place] [address] Signed test was developed and its performance characteristics determined by [facility]. It has not been cleared or approved by the U.S. Food and Drug Administration. The FDA has determined that such clearance or approval is not necessary. This test is used for clinical purposes. It should not be regarded as investigational or for research. [facility] is certified under the Clinical Laboratory Improvement Amendments of 1988 (CLIA) as qualified to perform high complexity clinical laboratory testing. PERFORMING LABORATORY: Technical component was performed by [facility], [address] [place] [address] (CLIA# [id number]). Professional interpretation was performed by [facility], [address] [place] [address] (CLIA#: [id number]). Diagnostician: Davie Mcrae MD Pathologist Electronically Signed 09/27/2023 Copies: ~ PATIENT NAME: KARIN PRIEST PATHOLOGY DATE OF : 84 REPORT #: [id number] PHYSICIAN: ELENITA BOCANEGRA PCP: BREANNA FUNG REPORT IS CONFIDENTIAL AND NOT TO BE RELEASED WITHOUT AUTHORIZATION
== END 2023-09-21 16:23 | disposition home or self-care (01) ==
LOC: ED 02:05 → MS 02:06 → DS 02:06 → ED 02:06 → DSVR 02:07 → MS 16:23 → DS 16:23 → MS 16:23
PROVIDERS: Colon & Rectal Surgery; ATTEND Surgery
PROC: 0FT44ZZ Resection of Gallbladder, Percutaneous Endoscopic Approach (ICD-10-PCS; principal; 2023-09-21 07:30)
DX: K80.00 Calculus of gallbladder with acute cholecystitis without obstruction (principal); E66.9 Obesity, unspecified; Z68.41 Body mass index [BMI] 40.0-44.9, adult; Z88.5 Allergy status to narcotic agent
CPT/HCPCS: 00790; 36415; 74300; 80053; 83690; 85025; 88304; A9270; J0131; J1100; J1170; J2001; J2405; J2704; J2765; J3010; J3475; J3490; Q9967